=== PATIENT | female | born 1945 | race Caucasian/White ===

== ENCOUNTER 2022-09-22 16:46 | Inpatient (IN) | payer OTHER ==
[~2022-09-22] VITALS: Ht 165.1 cm; Wt 90.7 kg
[~2022-09-22 16:46] MED LIST: ASPI-1822 PO; ATOR20TA40 PO; DOCU-299 PO; LISI5TAB24 PO; PANT40EC56 PO; SYN.05 PO
[2022-09-22 17:31] VITALS: BP 129/60
--- NOTE | 2022-09-22 17:42 | NUR ---
PT. MOVED TO BED 10 WITH NO ACUTE DISTRESS.
[2022-09-22 17:55] LABS: BASOPHILS # (AUTO) 0.1 K/uL (0.00-0.22); BASOPHILS % (AUTO) 0.5 % (0.0-2.0); EOSINOPHILS # (AUTO) 0.1 K/uL (0-0.4); EOSINOPHILS % (AUTO) 0.8 % (0.0-4.0); HEMOGLOBIN 12.2 g/dL (12.0-16.0); LYMPHOCYTES # (AUTO) 1.8 K/uL (2.5-16.5); LYMPHOCYTES % (AUTO) 19.1 % (20.5-51.1); MEAN CORPUSCULAR HEMOGLOBIN 29 pg (27-31); MEAN CORPUSCULAR HGB CONC 34 g/dL (33-37); MEAN CORPUSCULAR VOLUME 87.1 fL (80-94); MONOCYTES # (AUTO) 0.7 K/uL (0.8-1.0); MONOCYTES % (AUTO) 7.7 % (1.7-9.3); NEUTROPHILS # (AUTO) 6.9 K/uL (1.8-7.7); NEUTROPHILS % (AUTO) 71.9 % (42.2-75.2); PLATELET COUNT (AUTO) 211 K/uL (140-450); RED BLOOD CELL COUNT(AUTO) 4.14 MIL/uL (4.20-5.40); WHITE BLOOD COUNT (AUTO) 9.6 K/uL (4.8-10.8)
--- NOTE | 2022-09-22 18:07 | NUR ---
aSSUMED CARE , PT C/O CP ASSO WITH SOB THATS BEEN RAZIA ON FOR A FEW DAYS, PT IS PAIN FREE NOW, EKG DONE NO STEMI, AT BS TO EXAMINE
--- NOTE | 2022-09-22 18:08 | NUR ---
CORDELL [phone] REQUESTING A CALL BACK ONCE PATIENT GETS DISCHARGED.
[2022-09-22 18:19] LABS: ALBUMIN 3.7 g/dL (3.4-5.0); ANION GAP 10.6 (8-16); ASPARTATE AMINOTRANSFERASE 28 U/L (15-37); CARBON DIOXIDE 31.8 mmol/L (21-32); CHLORIDE 103 mmol/L (98-107); GLUCOSE 113 mg/dL (74-106); POTASSIUM 4.4 mmol/L (3.5-5.1); SODIUM SERUM 141 mmol/L (136-145); TOTAL BILIRUBIN 0.3 mg/dL (0.0-1.0); UREA NITROGEN, BLOOD 27 mg/dL (7-18)
--- NOTE | 2022-09-22 18:22 | NUR ---
MARIBELL PAUL, RESPONSIBLE DEMOCRAT IS REQUESTING TO BE CALLED ONCE PATIENT IS DISCHARGED OR IF THERE IS A CHANGE IN CONDITION.
--- NOTE | 2022-09-22 19:29 | NUR ---
REPORT TO TEODORO SCHNEIDER
--- NOTE | 2022-09-22 19:40 | NUR ---
Patient resting in bed, A/Ox4, chest rise and fall symmetrical, no c/o pain or s/s of distress, patient on monitor.
[2022-09-22] MEDS ORDERED: ZOLPIDEM 10 MG TAB PO PRN (20:40)
[2022-09-22] MEDS ORDERED: MORPHINE SULFATE 2 MG/ML SYR IVP PRN (20:40)
[2022-09-22] MEDS ORDERED: POTASSIUM CHLORIDE 10 MEQ TABER PO PRN (20:40)
[2022-09-22] MEDS ORDERED: MAG SULF 2000 MG/WATER PREMIX 50 ML IV PRN (20:40)
[2022-09-22] MEDS ORDERED: LORazepam 2 MG/ML VIAL IVP PRN (20:40)
[2022-09-22] MEDS: NACL 0.9% 1,000 ML IV SCH (20:40)
[2022-09-22] MEDS ORDERED: DOCUSATE SODIUM 100 MG GELCAP PO PRN ×2 (20:40)
[2022-09-22] MEDS ORDERED: ACETAMINOPHEN 325 MG TAB PO PRN (20:40)
[2022-09-22] MEDS ORDERED: ONDANSETRON 4 MG/2 ML VIAL IVP PRN (20:40)
--- NOTE | 2022-09-22 21:17 | NUR ---
CALL FROM PT'S HOME FACILITY [facility] WHO LEFT COTNACT INFO FOR UPDATE REQUEST:
--- NOTE | 2022-09-22 21:40 | NUR ---
Patient resting in bed, A/Ox4, chest rise and fall symmetrical, no c/o pain or s/s of distress, patient on monitor.
--- NOTE | 2022-09-22 22:35 | NUR ---
Patient resting in bed, A/Ox4, chest rise and fall symmetrical, no c/o pain or s/s of distress, patient on monitor.
--- NOTE | 2022-09-22 22:49 | NUR ---
Patient will be admitted to care of Dr. Yu. Admited to Telemetry. Will go to room 126B. Belongings list completed. Report to Yazmin SCHNEIDER. Yazmin SCHNEIDER verbalized understanding of report, no further questions.
[2022-09-22 23:12] VITALS: BP 136/60
--- NOTE | 2022-09-22 23:12 | NUR ---
RECEIVED PT FROM ER, PATIENT AMBULATED TO THE BED WITH STEADY GAIT, AWAKE,ALERT AND ORIENTED X4. DENIES CHEST PAIN. DENIES SHORTNESS OF BREATH. SKIN WARM AND DRY TO TOUCH. IVF INFUSING WELL ORDERED. ORIENTED TO [facility] SET UP, WHITEBOARD UPDATED. ADMISSION QUESTIONS ANSWERED BY PT. BED IN THE LOWEST AND LOCKED POSITION FOR SAFETY, CALL LIGHT GIVEN TO PT, INSTRUCTIONS ON USE PROVIDED, ENCOURAGED TO CALL IF ASSISTANCE IS NEEDED, PT VERBALLY ACKNOWLEDGED.
--- NOTE | 2022-09-23 01:53 | NUR ---
ROUNDING DONE, PT IS ASLEEP. BREATHING EVEN AND UNLABORED. CALL LIGHT WITHIN REACH.
[2022-09-23 04:00] VITALS: BP 129/64
[2022-09-23 05:45] LABS: BASOPHILS % (AUTO) 0.3 % (0.0-2.0); EOSINOPHILS # (AUTO) 0.1 K/uL (0-0.4); EOSINOPHILS % (AUTO) 0.7 % (0.0-4.0); HEMOGLOBIN 12.1 g/dL (12.0-16.0); LYMPHOCYTES # (AUTO) 1.6 K/uL (2.5-16.5); LYMPHOCYTES % (AUTO) 19.3 % (20.5-51.1); MEAN CORPUSCULAR HEMOGLOBIN 29 pg (27-31); MEAN CORPUSCULAR HGB CONC 34 g/dL (33-37); MONOCYTES # (AUTO) 0.6 K/uL (0.8-1.0); MONOCYTES % (AUTO) 7.5 % (1.7-9.3); NEUTROPHILS # (AUTO) 5.9 K/uL (1.8-7.7); NEUTROPHILS % (AUTO) 72.2 % (42.2-75.2); PLATELET COUNT (AUTO) 196 K/uL (140-450); RED BLOOD CELL COUNT(AUTO) 4.19 MIL/uL (4.20-5.40); WHITE BLOOD COUNT (AUTO) 8.2 K/uL (4.8-10.8)
--- NOTE | 2022-09-23 05:59 | NUR ---
IV NOTED TO BE LEAKING, STARTED IV IN THE RIGHT ARM GAUGE 22 X 1 ATTEMPT, PT TOLERATED WELL. REMOVED PREVIOUS IV SITE WITH INTACT CANNULA. PT REQUESTED SYNTHROID TO BE GIVEN BETWEEN [id number] SINCE SHE USUALLY TAKES IT AT 0900 AT HOME. WILL ENDORSE TO AM NURSE.
[2022-09-23 06:24] LABS: ANION GAP 12.4 (8-16); CARBON DIOXIDE 28.5 mmol/L (21-32); CHLORIDE 105 mmol/L (98-107); CREATININE 0.9 mg/dL (0.6-1.3); GLUCOSE 111 mg/dL (74-106); POTASSIUM 3.9 mmol/L (3.5-5.1); SODIUM SERUM 142 mmol/L (136-145); UREA NITROGEN, BLOOD 16 mg/dL (7-18)
[2022-09-23 06:29] LABS: THYROID STIMULATING HORMONE 2.83 uIU/mL (0.34-3.74)
[2022-09-23] MEDS ORDERED: LEVOTHYROXINE 0.05 MG TAB PO SCH (06:30)
--- NOTE | 2022-09-23 06:40 | NUR ---
PATIENT RESTING COMFORTABLY IN BED. NO DISTRESS NOTED. ALL NEEDS ATTENDED TO. SAFETY PRECAUTIONS MAINTAINED DURING THE SHIFT, CALL LIGHT REMAINS WITHIN REACH.
--- NOTE | 2022-09-23 07:00 | NUR ---
RECEIVED REPORT FROM NIGHTSHIFT NURSE FOR CONTINUITY OF CARE. PT IS RESTING IN BED, NO SIGNS OF DISTRESS, NO REPORTS OF PAIN. WILL CONTINUE WITH PT CARE.
[2022-09-23 08:00] VITALS: BP 136/60
[2022-09-23] MEDS ORDERED: ENOXAPARIN 30 MG/0.3 ML SYR SUBQ SCH (09:00)
[2022-09-23] MEDS ORDERED: METOPROLOL 25 MG TAB PO SCH (09:00)
[2022-09-23] MEDS ORDERED: PANTOPRAZOLE 40 MG TABEC PO SCH (09:00)
[2022-09-23] MEDS ORDERED: ASPIRIN 81 MG TAB.CHEW PO SCH (09:00)
--- NOTE | 2022-09-23 09:15 | NUR ---
PATIENT HAS BEEN SCREENED AND CATEGORIZED MODERATE NUTRITION RISK. PATIENT WILL BE SEEN WITHIN 3-5 DAYS OF ADMISSION. REVIEWED BY SHERLYN OLMEDO RD
[2022-09-23] MEDS: NACL 0.9% 1,000 ML IV SCH (11:07)
[2022-09-23 12:00] VITALS: BP 124/47
--- NOTE | 2022-09-23 14:41 | NUR ---
DC PLANNING ASSESSMENT COMPLETE PLEASE REFER TO ASSESSMENT FOR ADDITIONAL DETAILS [employer] DC PLAN IS FOR PT TO RETURN TO [facility], WHEN MEDICALLY CLEARED BY PHYSICIAN. [employer] PTS DAUGHTER CORDELL REQUESTING WHEN PT WILL BE RETURNING. SW ATTEMPTED TO OUTREACH TO PTS DAUGHTER DESIREE HOWEVER, NO ANSWER.
[2022-09-23 16:00] VITALS: BP 126/58
[2022-09-23] MEDS ORDERED: ATORVASTATIN 20 MG TAB PO SCH (17:00)
--- NOTE | 2022-09-23 18:00 | NUR ---
PT SEEN BY DR. ARNOLD, SOFTWARE [employer]. CLEARED PT FOR DISCHARGE. ATTENDING MD INFORMED, DISCHARGE ORDER GIVEN.
[2022-09-23 18:40] VITALS: BP 130/54
--- NOTE | 2022-09-23 19:10 | NUR ---
DISCHARGE INSTRUCTIONS PROVIDED. PT VERBALIZE UNDERSTANDING, PAPERWORK SIGNED. FAMILY CONTACTED. SPOKE WITH BROTHER AND DAUGHTER. DAUGHTER WILL BE PICKING UP PT WHEN PT IS READY.
--- NOTE | 2022-09-23 19:15 | NUR ---
ENDORSED PT TO NIGHTSHIFT NURSE FOR CONTINUITY OF CARE.
--- NOTE | 2022-09-23 19:20 | NUR ---
RECEIVED PT IN BED WATCHING TV. DENIES PAIN. NO ACUTE RESPIRATORY DISTRESS. PT FOR DISCHARGE, AWAITING DAUGHTER, DISCHARGE INSTRUCTIONS GIVEN AND EXPLAINED BY AM NURSE. SKIN WARM AND DRY TO TOUCH. SAFETY PRECAUTIONS IN PLACE, CALL LIGHT IN REACH, INSTRUCTED TO CALL IF ASSISTANCE IS NEEDED, PT VERBALLY ACKNOWLEDGED.
[2022-09-23 20:00] VITALS: BP 141/50
--- NOTE | 2022-09-23 20:53 | NUR ---
DISCHARGED PT TO HOME, DAUGHTER CORDELL PICKED UP PT. REMOVED IV WIHT INTACT CANNULA. PT STABLE NO CHEST PAIN.
== END 2022-09-23 20:55 | disposition home or self-care (01) | DRG 392 ==
LOC: MED 16:46 → MTU 20:19 → MMU 22:01
PROVIDERS: ADMIT General Practice; ATTEND General Practice
DX: K21.9 Gastro-esophageal reflux disease without esophagitis (principal); I25.10 Atherosclerotic heart disease of native coronary artery without angina pectoris; Z20.822 Contact with and (suspected) exposure to COVID-19; M79.7 Fibromyalgia; E78.5 Hyperlipidemia, unspecified; E11.9 Type 2 diabetes mellitus without complications; E03.9 Hypothyroidism, unspecified; Z79.82 Long term (current) use of aspirin; Z79.899 Other long term (current) drug therapy; Z68.33 Body mass index [BMI] 33.0-33.9, adult; Z90.49 Acquired absence of other specified parts of digestive tract; Z90.710 Acquired absence of both cervix and uterus
CPT/HCPCS: 36415; 71045; 80048; 80053; 83036; 83735; 84443; 84484; 85025; 87081; 93005; 99285; J1650